=== PATIENT | male | born 1985 | race Two or more races ===

== ENCOUNTER 2021-05-10 06:34 | Emergency (ER) | payer MEDICAID ==
[~2021-05-10] VITALS: Ht 185.4 cm; Wt 144.6 kg
[2021-05-10 06:41] VITALS: BP 142/82
--- NOTE | 2021-05-10 07:05 | NUR ---
PT walked back from triage with chief complaint of needing rx refill. ERMD at bedside for eval.
--- NOTE | 2021-05-10 08:03 | NUR ---
dc instructions reviewed
== END 2021-05-10 08:09 | disposition home or self-care (01) ==
LOC: ED 08:02
DX: R56.9 Unspecified convulsions (principal); J45.909 Unspecified asthma, uncomplicated; Z76.0 Encounter for issue of repeat prescription
CPT/HCPCS: 99281